=== PATIENT | female | born 1980 | race Asian ===

== ENCOUNTER 2021-01-04 13:55 | Emergency (ER) | payer MEDICARE, MEDICAID ==
[~2021-01-04] VITALS: Ht 157.5 cm; Wt 72.7 kg
[~2021-01-04 13:55] MED LIST: OLAN5TAB26 PO; ZIPR40CA2 PO
[2021-01-04 14:29] VITALS: BP 129/80
[2021-01-04] MEDS ORDERED: normal saline 1000ML IV soln IVB ONE (14:45)
[2021-01-04 14:55] LABS: BASOPHILS % (AUTO) 0.4 % (0-1); EOSINOPHILS # (AUTO) 0.1 X10'3 (0-0.9); EOSINOPHILS % (AUTO) 0.7 % (0-6); HEMATOCRIT 41.7 % (35.0-45.0); HEMOGLOBIN 14.2 g/dl (12.0-16.0); LYMPHOCYTES # (AUTO) 1.4 X10'3 (1.1-4.8); LYMPHOCYTES % (AUTO) 13.3 % (21-51); MEAN CORPUSCULAR HEMOGLOBIN 29.1 PG (27.0-31.0); MEAN CORPUSCULAR VOLUME 85.8 FL (78-98); MEAN PLATELET VOLUME 6.5 FL (7.4-10.4); MONOCYTES # (AUTO) 0.5 X10'3 (0-0.9); MONOCYTES % (AUTO) 5.2 % (2-12); NEUTROPHILS # (AUTO) 8.5 X10'3 (1.8-7.7); NEUTROPHILS % (AUTO) 80.4 % (42-75); PLATELET COUNT 378 X10'3 (140-440); RED BLOOD COUNT 4.86 X10'6 (4.20-5.60); RED CELL DISTRIBUTION WIDTH 13.6 % (11.5-14.5); WHITE BLOOD COUNT 10.5 X10'3 (4.5-11.0)
[2021-01-04 15:09] LABS: ALANINE AMINOTRANSFERASE 21 U/L (12-78); ALBUMIN 3.7 G/DL (3.4-5.0); ALBUMIN/GLOBULIN RATIO 0.9 (1.1-1.5); ALKALINE PHOSPHATASE 84 IU/L (46-116); ANION GAP 11 (8-16); ASPARTATE AMINO TRANSFERASE 10 U/L (10-37); BILIRUBIN,TOTAL 0.4 MG/DL (0.1-1.0); BLOOD UREA NITROGEN 11 MG/DL (7-18); BUN/CREATININE RATIO 14.5 (6.6-38.0); CALCIUM 8.2 MG/DL (8.5-10.1); CHLORIDE 106 MMOL/L (99-107); CREATININE 0.76 MG/DL (0.40-0.90); GLUCOSE 105 MG/DL (70-104); POTASSIUM 4.2 MMOL/L (3.5-5.1); SODIUM 138 MMOL/L (135-145); TOTAL CARBON DIOXIDE 21.4 MMOL/L (24-32); TOTAL PROTEIN 7.6 G/DL (6.4-8.2); eGFR 85 ML/MIN
[2021-01-04 15:38] LABS: CREATINE KINASE 67 U/L (26-192); ETHANOL < 0.010 GM/DL (0.0-0.010); TROPONIN I < 0.04 NG/ML (0.0-0.05)
[2021-01-04 15:50] LABS: HIV ANTIBODY 1&2 RAPID NON-REACTIVE (Neg)
[2021-01-04 16:29] LABS: AMMONIA < 10 UMOL/L (11-32)
[2021-01-04 17:02] LABS: LACTIC SEPSIS 1.1 MMOL/L (0.4-2.0)
--- NOTE | 2021-01-04 18:33 | NUR ---
Pt car is parked at the [facility]. Pt has 24 hrs to have car moved from [address]. Pt is reported to have her keys in her purse.
[2021-01-04 19:12] LABS: URINE HCG NEGATIVE (NEG)
[2021-01-04 19:13] LABS: CLARITY,URINE CLEAR (Clear); COLOR,URINE YELLOW (Yellow); GLUCOSE, URINE NEGATIVE (Neg); KETONES,URINE >=80 mg/dl (Neg); LEUKOCYTE ESTERASE ,URINE SMALL (Neg); NITRITES, URINE NEGATIVE (Neg); OCCULT BLOOD,URINE NEGATIVE (Neg); PH,URINE 5.5 (4.8-8.0); PROTEIN,URINE NEGATIVE (Neg); UROBILINOGEN,URINE 0.2 E.U/dL (0.2-1.0)
[2021-01-04 19:24] LABS: BACTERIA,URINE FEW /HPF (Neg); RBC,URINE 0-2 /HPF (0-2); SQUAMOUS EPITHELIAL CELL,UR FEW /LPF (FEW); UA COLLECTION TYPE CLN CATCH MIDSTREAM; WBC,URINE 0-4 /HPF (0-4)
--- NOTE | 2021-01-04 19:31 | NUR ---
Patient was given her cell phone to contact mother.
[2021-01-04 20:10] LABS: URINE AMPHETAMINE SCREEN NEGATIVE (Neg); URINE BARBITUATE SCREEN NEGATIVE (Neg); URINE BENZODIAZEPINES SCREEN NEGATIVE (Neg); URINE CANNABINOID SCREEN NEGATIVE (Neg); URINE COCAINE SCREEN NEGATIVE (Neg); URINE METHADONE SCREEN NEGATIVE (Neg); URINE OPIATE SCREEN NEGATIVE (Neg); URINE PHENCYCLIDINE SCREEN NEGATIVE (Neg)
--- NOTE | 2021-01-04 20:29 | NUR ---
Father, Kathy Carroll, , at ER to talk to patient. Patient gave permission to discuss condition with him. He also took patient's car keys in order to move her car out of [facility] lot. Father provided information on patient; She has a diagnosis of disordered schizophrenia and is considered high functioning. Patient lives independently by herself. She is not taking any medications at this time but is using nutritional supplements instead. Pt is being followed by Dr. Ana Rosa Robbins, clinical psychologist.
--- NOTE | 2021-01-04 22:05 | NUR ---
Patient refused phebotomy for second culture.
--- NOTE | 2021-01-05 06:48 | NUR ---
Recieved Pt in bed sleeping w/o distress at change of shift. Pt up to bathroom and returned to bed w/o incident; pt calm and cooperative at this time.
--- NOTE | 2021-01-05 08:05 | NUR ---
PACKET FAXED TO [facility]
--- NOTE | 2021-01-05 10:15 | NUR ---
Pt ate 50% of breakfast. Woke to transport to ER overflow and returned to lying in bed, but awake. Pt evaluated by [facility]; [id number] hold will not be upheld and discharge plan arranged by [facility] clinician, Pt, and Pt's father who was present during the evaluation. Pt calm and cooperative and pleased with discharge plan.
--- NOTE | 2021-01-05 10:39 | NUR ---
Pt discharged to home with father and fu care out-pt.
[2021-01-07 12:28] LABS: HEP B CORE AB, TOT Negative (Negative); HEPATITIS C ANTIBODY <0.1 s/co ratio (0.0-0.9)
== END 2021-01-05 10:47 | disposition home or self-care (01) ==
LOC: ER 13:55
DX: F23 Brief psychotic disorder (principal); F41.9 Anxiety disorder, unspecified; F32.9 Major depressive disorder, single episode, unspecified
CPT/HCPCS: 36415; 70450; 71045; 80053; 80305; 80320; 81001; 81025; 82140; 82550; 82553; 83605; 84443; 84484; 85025; 86703; 86704; 86705; 86706; 86803; 87040; 87077; 87088; 87186; 93005; 99285; J7030